=== PATIENT | female | born 1970 | race Caucasian/White ===

== ENCOUNTER → 2016-07-14 | Outpatient (CLI) | payer BC ==
[~2016-07-14] MED LIST: ASTELIN NASAL S34 ML IH; FLONASEALLERGY NS; NORCO 325 MG-51 TAB PO; SINGULAIR 110 MG/TAB PO; XARELTO20 MG PO; ZOLOFT 50MG50 MG PO
== END ==
LOC: COL.RAD 10:00
DX: C43.71 Malignant melanoma of right lower limb, including hip (principal); R59.9 Enlarged lymph nodes, unspecified
CPT/HCPCS: Q9967

== ENCOUNTER → 2018-02-16 | Outpatient (CLI) | payer BC | LOC: COL.RAD 08:20 | DX: C43.70 Malignant melanoma of unspecified lower limb, including hip (principal); N94.89 Other specified conditions associated with female genital organs and menstrual cycle; R59.0 Localized enlarged lymph nodes; Z90.710 Acquired absence of both cervix and uterus | CPT/HCPCS: Q9967 ==